=== PATIENT | male | born 1955 | race Caucasian/White ===

== ENCOUNTER 2019-02-02 21:06 | Observation (INO) ==
[2019-02-02] MEDS ORDERED: PANTOPRAZOLE SODIUM 40 MG/100 ML PIGGYBACK IV ONE (22:00)
--- NOTE | 2019-02-02 22:00 | ERNOTE ---
Dizziness ER Record Date of Service: 02/02/19 Presenting Symptoms: weakness Time Seen by Provider: 02/02/19 21:42 Source: patient Immunizations: IMMUNIZATION HX Immunizations Up to Date Yes History of Influenza Vaccine Yes Hx Pneumococcal Vaccination Yes Allergies/Adverse Reactions: Allergies Allergy/AdvReac Type Severity Reaction Status Date / Time No Known Allergies Allergy Unverified 02/02/19 21:20 Home Medications: HOME MEDICATIONS Aspirin [Aspir-Low] 324 mg PO DAILY 02/02/19 [Last Taken Unknown] Atorvastatin Calcium 10 mg PO DAILY 02/02/19 [Last Taken Unknown] Benazepril HCl 10 mg PO 02/02/19 [Last Taken Unknown] Cholecalciferol (Vitamin D3) [Vitamin D3] 2,000 unit PO DAILY 02/02/19 [Last Taken Unknown] Cyanocobalamin (Vitamin B-12) [Vitamin B12] 5,000 mcg PO DAILY 02/02/19 [Last Taken Unknown] Glipizide 02/02/19 [Last Taken Unknown] Januvia 02/02/19 [Last Taken Unknown] Levothyroxine Sodium 02/02/19 [Last Taken Unknown] Metformin HCl 02/02/19 [Last Taken Unknown] - History of Present Illness Narrative: This is a 63-year-old gentleman who lives in [place]. 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 The patient had some blood tests done earlier today for vertigo type symptoms. He was called and told his hemoglobin was low. The patient has no history of taking blood thinners but he does take a baby aspirin each day. He says that over the course of the summer he just has not been feeling right. There are occasions where he gets chest tightness associated with palpitations and shortness of breath. He gets some tingling especially in the right hand. He does not have any vomiting but he does get nauseated and gets slightly diaphoretic. The symptoms will get better on their own within 15 to 30 minutes. The patient also had one episode earlier in the last month where he got dizzy with right-sided tingling to his face arm leg and torso. He also had difficulty speaking due to "the side of my face drawing up "he did not see anyone for evaluation of this. The physician who is associated with his [facility] ordered the labs today as routine screening to see what is been going on and he was found to have the symptoms so a call was made to the hospital and the physician requested a bunch of tests. At this time the patient does not have any symptoms with the exception of just having generalized malaise. He says over the last 4 days he has had dark stool. He gets some mild crampy lower abdominal pain about an hour after eating. He also says over the last month his hemorrhoids have been acting up and he gets a bowl full of maroon blood on occasion. He assumes that his hemorrhoids but is not sure. At present he denies any fever, abdominal pain, shortness of breath, sore throat, runny nose, blurred vision, or other symptoms. Review of Systems - Review of Systems Constitutional: Present: malaise EYE: Present: no symptoms reported ENT: Present: no symptoms reported Respiratory: Present: shortness of breath Cardiology: Present: chest pain, palpitations Gastrointestinal/Abdominal: Present: nausea, abdominal pain, other - Dark stool. Absent: vomiting, diarrhea Genitourinary: Present: no symptoms reported Musculoskeletal: Present: no symptoms reported Skin: Present: no symptoms reported Neurological: Present: See HPI, dizziness/light-headedness, tingling Endocrine: Present: no symptoms reported Hematologic/Lymphatic: Present: See HPI Psych: Present: no symptoms reported All Other Systems: All systems neg except as marked Medical History (Last Updated 02/02/19 @ 21:17 by Valerie Pendleton RN) Hyperlipemia Hypertension Hypothyroid Non-insulin dependent type 2 diabetes mellitus Surgical History: Surgical History (Last Updated 02/02/19 @ 21:18 by Valerie Pendleton RN) Hx of cholecystectomy Previous back surgery Family History: Family History (Last Updated 02/02/19 @ 21:19 by Valerie Pendleton RN) Mother Diabetes type 2, uncontrolled Father History of TIA (transient ischemic attack) and stroke Grandfather History of TIA (transient ischemic attack) and stroke Myocardial infarction Lung cancer Social History: (Last Updated 02/02/19 @ 21:20 by Valerie Pendleton RN) Tobacco: Smoking Status: Never smoker Alcohol: alcohol intake: never Substance Use: substance use type: does not use Physical Exam - Physical Exam General Appearance: Present: wd/wn, alert, no apparent distress, other - Patient does appear pale Head Exam: Present: normal inspection, no evidence of injury Eye Exam: Normal inspection: bilateral, PERRL: bilateral, EOMI: bilateral Ears, Nose, Throat: Present: normal ENT inspection, normal pharynx Neck: Present: normal inspection, nontender Respiratory: Present: no respiratory distress, normal breath sounds, chest nontender, lungs clear Cardiovascular/Chest: Present: regular rate, rhythm, no murmur Gastrointestinal/Abdominal: Present: nontender, nondistended, soft Back Exam: Present: normal inspection, normal range of motion, no CVA tenderness, no vertebral tenderness Extremity Exam: Present: normal inspection, non-tender, normal range of motion, no edema Neurological Exam: Present: alert, oriented, normal mood/affect, no motor /sensory deficits Skin Exam: Present: other - Does seem pale Lymphatic Exam: Present: no adenopathy Progress - Results and Orders Patient's Lab Results:: I have reviewed the patient's lab results. - Vital Signs Patient's Vital Signs:: I have reviewed the patient's vital signs. Vital Signs: Vital Signs 02/02/19 21:12 Temperature 36.3 C Pulse Rate 74 Respiratory Rate 16 Blood Pressure 129/67 O2 Sat by Pulse Oximetry 98 - EKG EKG #1 EKG read: Interp. by me EKG Comments: Sinus rhythm with a ventricular rate of 77, normal axis, normal intervals, no ST elevation, no abnormal T waves. - X-Ray X-Ray #1 X-Ray: chest Interpretation: Interp. by me X-ray Comments: No acute cardiopulmonary abnormalities are identified - CT/Ultrasound CT/Ultrasound Narrative: CT of the head failed to demonstrate any acute intracranial abnormality - Progress/Reassessment Chief Complaint: Dizziness Plan - Plan Plan: Patient is symptomatic with anemia. GI bleed is certain. I have spoke with Dr. Alcazar who is graciously agreed to admit the patient. Is gotten Protonix IV instead a liter of saline and a packed unit of cells going in now. We will place on telemetry on the floor. He was orthostatic with his heart rate going up 30 points. I do not believe CAT scan is warranted at this time as he has no pain and no leukocytosis or fever. It is unlikely that a CT scan of the abdomen is can show a source of bleeding Departure Clinical Impression: Anemia Qualifiers: Anemia type: other cause Other causes of anemia: other cause, not classified Q ualified Code(s): D64.89 - Other specified anemias GI bleed Qualifiers: GI bleed type/associated pathology: unspecified gastrointestinal hemorrhage type Qualified Code(s): K92.2 - Gastrointestinal hemorrhage, unspecified - Departure Disposition: Still a patient Condition: Stable
[2019-02-02 22:19] LABS: Mean Cell Volume 65.4 fl (78-100); Mean Corpuscular Hemoglobin 18.4 pg (27-31); Mean Corpuscular Hgb Conc 28.1 g/dl (32-36); Mean Platelet Volume 9.2 fl (8-11.3); Neutrophil # 3.9 K/mm3 (1.3-6.0); Neutrophil % 49.5 % (42-75.0); Platelet Count 387 K/mm3 (150-450); Red Blood Count 4.13 M/mm3 (4.7-6.0); Red Cell Distribution Width 16.6 % (11.5-14.0); White Blood Count 7.8 K/mm3 (4.0-10.5)
[2019-02-02 22:24] LABS: Prothrombin Time (Patient) 11.2 Seconds (9.1-10.7)
[2019-02-02 22:32] LABS: Hemoglobin 7.6 gm/dL (13.5-18.0)
[2019-02-02 22:37] LABS: BUN/Creatinine Ratio 19.5 (9.0-21.6); Blood Urea Nitrogen 29 mg/dL (6-23); Glucose * 115 mg/dL (70-110); INR 1.14 INR (0.92-1.08); Sodium 138 mmol/L (132-142); Troponin I Less than 0.017 ng/mL (0.00-0.10)
[2019-02-02 22:38] LABS: ALT 18 U/L (19-67); AST 26 U/L (0-48); Albumin * 3.8 gm/dl (3.4-5.0); Alkaline Phosphatase * 49 U/L (50-170); Anion Gap 15.6 mmol/L (6.8-13.8); BNP * 68 pg/mL (5-175); Bilirubin, Total 0.2 mg/dL (0.0-1.1); Ca. Corrected For Albumin 8.6 mg/dL (8.4-10.2); Calcium * 8.8 mg/dL (7.9-10.9); Carbon Dioxide 23.3 mmol/L (24-32.6); Chloride 104 mmol/L (97-106); Total Protein 7.5 gm/dL (6.2-8.2)
[2019-02-02 22:50] LABS: Potassium 4.9 mmol/L (3.4-4.6)
[2019-02-03 07:40] LABS: Hematocrit 27.8 % (42.0-52.0); Hemoglobin 8.1 gm/dL (13.5-18.0)
[2019-02-03] MEDS ORDERED: NORMAL SALINE 1,000 ML IV ONE (10:45)
--- NOTE | 2019-02-03 12:21 | HPDIS ---
Chief Complaint - Chief Complaint Date of Service: 02/03/19 Time of Service: 12:21 Chief Complaint: GI bleed, dizziness History of Present Illness: 63-year-old male with history of hypertension, hyperlipidemia, hypothyroidism, and [id number] type 2 diabetes presented to the ER with bloody bowel movements and dizziness. Patient had been seen previously by another physician in outpatient setting for this issue where he had a hemoglobin drawn which he was told came back at 7.1. He was advised to come to our hospital at that time. Here his initial hemoglobin was 7.6 and he was transfused 1 unit of packed red blood cells by Dr. Escalante. He denies abdominal pain, diarrhea, nausea or vomiting. He denies fevers or chills. He is unsure as to how long this is been going on but he can recall a few bloody bowel movements during the last couple weeks which she had initially attributed to internal hemorrhoids which he has a diagnosis of. Of note patient also endorses some right side sensory changes in his face, arm, leg. CT scan of the head was negative for any acute pathology. This is been going on for greater than a month, patient has a scheduled MRI of the brain with and without contrast to be done in the next few days in the outpatient setting. His symptoms have not changed with this visit. While here his vital signs been stable and he is been afebrile. Patient was admitted to the floor under observation to determine whether or not he needed inpatient work-up for this GI bleed or if he can be discharged home after receiving a unit and have this work-up performed in the outpatient setting. Medical History (Last Updated 02/03/19 @ 00:28 by Carol Nielson RN) Sleep apnea Hyperlipemia Hypertension Hypothyroid Non-insulin dependent type 2 diabetes mellitus Surgical History: Surgical History (Last Reviewed 02/03/19 @ 00:28 by Carol Nielson RN) Hx of cholecystectomy Previous back surgery Family History: Family History (Last Reviewed 02/03/19 @ 00:28 by Carol Nielson RN) Mother Diabetes type 2, uncontrolled Father History of TIA (transient ischemic attack) and stroke Grandfather History of TIA (transient ischemic attack) and stroke Myocardial infarction Lung cancer Social History: (Last Reviewed 02/03/19 @ 00:28 by Carol Nielson RN) Tobacco: Smoking Status: Never smoker Alcohol: alcohol intake: never Substance Use: substance use type: does not use Review Of Systems (GEN) - Review of Systems Generalized/Overall Review: Absent: Weakness, Chills, Fever EENTM: Absent: Blurred Vision, Double Vision, Ear Pain Respiratory: Absent: Cough, Shortness of Breath Cardiac: Absent: Chest Pain, Edema, Palpitations Abdominal: Present: Melena. Absent: Nausea, Vomiting, Abdominal Pain Genitourinary: Present: No Symptoms Reported Musculoskeletal: Present: No Symptoms Reported Neurological: Present: Numbness, Weakness Skin: Present: No Symptoms Reported Endocrine: Present: No Symptoms Reported Immunizations: IMMUNIZATION HX Immunizations Up to Date Yes History of Influenza Vaccine Yes Hx Pneumococcal Vaccination Yes Allergies/Adverse Reactions: Allergies Allergy/AdvReac Type Severity Reaction Status Date / Time No Known Allergies Allergy Verified 02/03/19 09:07 Home Medications: HOME MEDICATIONS Aspirin [Aspir-Low] 324 mg PO DAILY 02/02/19 [Last Taken 02/02/19] Atorvastatin Calcium 10 mg PO DAILY 02/02/19 [Last Taken 02/02/19] Benazepril HCl 20 mg PO DAILY 02/02/19 [Last Taken 02/02/19] Cholecalciferol (Vitamin D3) [Vitamin D3] 2,000 unit PO DAILY 02/02/19 [Last Taken 02/02/19] Cyanocobalamin (Vitamin B-12) [Vitamin B12] 5,000 mcg PO DAILY 02/02/19 [Last Taken 02/02/19] Fenofibrate 160 mg PO DAILY 02/03/19 [Last Taken 02/02/19] Levothyroxine Sodium [Synthroid] 112 mcg PO DAILY 02/03/19 [Last Taken 02/02/19] Pioglitazone HCl [Actos] 30 mg PO DAILY 02/03/19 [Last Taken 02/02/19] metFORMIN HCL [Metformin HCl] 1,000 mg PO BID 02/03/19 [Last Taken 02/02/19] sitaGLIPtin PHOSPHATE [Januvia] 100 mg PO DAILY 02/03/19 [Last Taken 02/02/19] Exam - Exam Vital Signs: Vital Signs - Last Taken Temp 36.5 C 02/03/19 10:51 Pulse 66 02/03/19 10:51 Resp 12 02/03/19 10:51 BP 107/63 02/03/19 10:51 Pulse Ox 95 02/03/19 10:51 Constitutional: Present: Alert, Oriented x3, Cooperative, Obese ENT Exam: Present: hearing grossly normal, pharynx normal. Absent: nasal congestion, nasal drainage Eye Exam: bilateral eye: normal inspection, PERRL, EOMI Neck: Present: non-tender, supple Back Exam: Present: normal inspection, no CVA tenderness Respiratory: Present: lungs clear, normal breath sounds Cardiovascular/Chest: Present: regular rate, rhythm, no murmur Abdomen: Present: Normal bowel sounds, soft, nontender /Rectal: Present: Exam deferred Skin Exam: Present: normal color, warm/dry Neurologic: Present: alert, oriented x 3, sensory deficit - Minimal decrease in sensory of right lower and upper extremity compared to left lower and upper extremity. Absent: aphasia, facial droop, motor weakness Appearance: Present: appropriate appearance, appropriate insight Eye contact: Present: cooperative, good eye contact Thoughts: Present: normal thought pattern, normal mood /affect Diagnostic Studies: Abnormal Lab Results 02/02/19 02/02/19 02/02/19 Range/Units 22:05 22:05 22:05 RBC 4.13 L (4.7-6.0) M/mm3 Hgb 7.6 L* (13.5-18.0) gm/dL Hct 27.0 L (42.0-52.0) % MCV 65.4 L (78-100) fl MCH 18.4 L (27-31) pg MCHC 28.1 L (32-36) g/dl RDW 16.6 H (11.5-14.0) % Immature Gran % (Auto) 0.80 H (0.001-0.429) % Immature Gran # (Auto) 0.06 H (0.000-0.0310) K/mm3 Monocytes % 9.8 H (0.0-9) % Eosinophils % 4.4 H (0.0-3.0) % Immature Retic Fraction 38.9 H (2.3-13.4) % Retic Hgb Content 17.7 L (29-35) pg PT 11.2 H (9.1-10.7) Seconds INR (Anticoag Therapy) 1.14 H (0.92-1.08) INR Potassium 4.9 H (3.4-4.6) mmol/L Carbon Dioxide 23.3 L (24-32.6) mmol/L Anion Gap 15.6 H (6.8-13.8) mmol/L BUN 29 H (6-23) mg/dL Creatinine 1.49 H (0.4-1.4) mg/dL Est GFR (Non-Af Amer) 50 L (60-130) mL/min Random Glucose 115 H (70-110) mg/dL ALT 18 L (19-67) U/L Alkaline Phosphatase 49 L (50-170) U/L Crossmatch 02/02/19 02/03/19 Range/Units 22:05 07:34 RBC (4.7-6.0) M/mm3 Hgb 8.1 L (13.5-18.0) gm/dL Hct 27.8 L (42.0-52.0) % MCV (78-100) fl MCH (27-31) pg MCHC (32-36) g/dl RDW (11.5-14.0) % Immature Gran % (Auto) (0.001-0.429) % Immature Gran # (Auto) (0.000-0.0310) K/mm3 Monocytes % (0.0-9) % Eosinophils % (0.0-3.0) % Immature Retic Fraction (2.3-13.4) % Retic Hgb Content (29-35) pg PT (9.1-10.7) Seconds INR (Anticoag Therapy) (0.92-1.08) INR Potassium (3.4-4.6) mmol/L Carbon Dioxide (24-32.6) mmol/L Anion Gap (6.8-13.8) mmol/L BUN (6-23) mg/dL Creatinine (0.4-1.4) mg/dL Est GFR (Non-Af Amer) (60-130) mL/min Random Glucose (70-110) mg/dL ALT (19-67) U/L Alkaline Phosphatase (50-170) U/L Crossmatch See Detail Laboratory Results WBC 7.8 K/mm3 (4.0-10.5) 02/02/19 22:05 RBC 4.13 M/mm3 (4.7-6.0) L 02/02/19 22:05 Hgb 8.1 gm/dL (13.5-18.0) L 02/03/19 07:34 Hct 27.8 % (42.0-52.0) L 02/03/19 07:34 MCV 65.4 fl (78-100) L 02/02/19 22:05 MCH 18.4 pg (27-31) L 02/02/19 22:05 MCHC 28.1 g/dl (32-36) L 02/02/19 22:05 RDW 16.6 % (11.5-14.0) H 02/02/19 22:05 Plt Count 387 K/mm3 (150-450) 02/02/19 22:05 MPV 9.2 fl (8-11.3) 02/02/19 22:05 Immature Gran % (Auto) 0.80 % (0.001-0.429) H 02/02/19 22:05 Immature Gran # (Auto) 0.06 K/mm3 (0.000-0.0310) H 02/02/19 22:05 Neutrophils % 49.5 % (42-75.0) 02/02/19 22:05 Lymphocytes % 34.5 % (20-51) 02/02/19 22:05 Monocytes % 9.8 % (0.0-9) H 02/02/19 22:05 Eosinophils % 4.4 % (0.0-3.0) H 02/02/19 22:05 Basophils % 1.0 % (0.0-1.0) 02/02/19 22:05 Nucleated RBC % 0.0 k/mm3 (0-1) 02/02/19 22:05 Neutrophils # 3.9 K/mm3 (1.3-6.0) 02/02/19 22:05 Lymphocytes # 2.68 k/mm3 (1.5-3.5) 02/02/19 22:05 Monocytes # 0.8 k/mm3 (0.0-1.0) 02/02/19 22:05 Eosinophils # 0.3 k/mm3 (0.0-0.7) 02/02/19 22:05 Absolute Basophils 0.1 k/mm3 (0.0-0.1) 02/02/19 22:05 Absolute Retic 0.0702 02/02/19 22:05 Percent Retic 1.7 % (0.4-1.8) 02/02/19 22:05 Immature Retic Fraction 38.9 % (2.3-13.4) H 02/02/19 22:05 Retic Hgb Content 17.7 pg (29-35) L 02/02/19 22:05 PT 11.2 Seconds (9.1-10.7) H 02/02/19 22:05 INR (Anticoag Therapy) 1.14 INR (0.92-1.08) H 02/02/19 22:05 Sodium 138 mmol/L (132-142) 02/02/19 22:05 Plasma Sodium 138 mmol/L (130-142) 02/02/19 22:05 Potassium 4.9 mmol/L (3.4-4.6) H 02/02/19 22:05 Chloride 104 mmol/L (97-106) 02/02/19 22:05 Carbon Dioxide 23.3 mmol/L (24-32.6) L 02/02/19 22:05 Anion Gap 15.6 mmol/L (6.8-13.8) H 02/02/19 22:05 BUN 29 mg/dL (6-23) H 02/02/19 22:05 Creatinine 1.49 mg/dL (0.4-1.4) H 02/02/19 22:05 Est GFR (Non-Af Amer) 50 mL/min (60-130) L 02/02/19 22:05 BUN/Creatinine Ratio 19.5 (9.0-21.6) 02/02/19 22:05 Random Glucose 115 mg/dL (70-110) H 02/02/19 22:05 Calcium 8.8 mg/dL (7.9-10.9) 02/02/19 22:05 Calcium Adj for Albumin 8.6 mg/dL (8.4-10.2) 02/02/19 22:05 Total Bilirubin 0.2 mg/dL (0.0-1.1) 02/02/19 22:05 AST 26 U/L (0-48) 02/02/19 22:05 ALT 18 U/L (19-67) L 02/02/19 22:05 Alkaline Phosphatase 49 U/L (50-170) L 02/02/19 22:05 Troponin I Less than 0.017 ng/mL (0.00-0.10) 02/02/19 22:05 B-Natriuretic Peptide 68 pg/mL (5-175) 02/02/19 22:05 Total Protein 7.5 gm/dL (6.2-8.2) 02/02/19 22:05 Albumin 3.8 gm/dl (3.4-5.0) 02/02/19 22:05 Blood Type O Positive 02/02/19 22:05 Antibody Screen Negative 02/02/19 22:05 Crossmatch See Detail 02/02/19 22:05 Assessment/Plan - Narrative Narrative: Patient is here for observation due to symptomatic anemia with dizziness from GI bleed. Case was discussed with Dr. Russ who thinks that this can be worked up in outpatient setting. Patient has not had any further bloody bowel movements since being admitted. Patient currently feeling well and his vital signs are stable. Repeat hemoglobin was 8.1. Plan is for likely upper and lower scoping in the near future to determine source of bleed and for treatment plan. As far as patient's right-sided abnormalities, advised patient continue with scheduled MRI of brain early next week as planned. Patient had an acute kidney injury with a slightly elevated creatinine and lower GFR. He was given a liter of normal saline and repeat creatinine and GFR returned back to within normal range. Should be safe for him to have brain MRI with contrast in the next couple days. Hypertensionblood pressure well controlled while here. Other vital signs stable. Recommend he continue consistent carb diet. No changes to his chronic medications as he is already on a full-strength aspirin and high-dose statin. - Assessment/Plan (1) GI bleed Problem: Acute Qualifiers: GI bleed type/associated pathology: unspecified gastrointestinal hemorrhage type Qualified Code(s): K92.2 - Gastrointestinal hemorrhage, unspecified (2) Anemia Problem: Acute Qualifiers: Anemia type: other cause Other causes of anemia: other cause, not classified Qualified Code(s): D64.89 - Other specified anemias (3) Weakness of right side of body Problem: Acute (4) Hypertension Problem: Acute (5) Hyperlipidemia Problem: Acute (6) Hypothyroidism Problem: Acute (1) GI bleed Problem: Chronic Qualifiers: GI bleed type/associated pathology: unspecified gastrointestinal hemorrhage type Qualified Code(s): K92.2 - Gastrointestinal hemorrhage, unspecified (2) Anemia Problem: Chronic Qualifiers: Anemia type: other cause Other causes of anemia: other cause, not classified Qualified Code(s): D64.89 - Other specified anemias (3) Weakness of right side of body Problem: Acute (4) Hypertension Problem: Chronic (5) Hyperlipidemia Problem: Chronic (6) Hypothyroidism Problem: Chronic Date of Discharge:: 02/03/19 Description of Stay: 63-year-old male with history of hypertension, hyperlipidemia, hypothyroidism, and qzn-mhobwzz-[id number] type 2 diabetes presented to the ER with bloody bowel movements and dizziness. Patient had been seen previously by another physician in outpatient setting for this issue where he had a hemoglobin drawn which he was told came back at 7.1. He was advised to come to our hospital at that time. Here his initial hemoglobin was 7.6 and he was transfused 1 unit of packed red blood cells by Dr. Escalante. He denies abdominal pain, diarrhea, nausea or vomiting. He denies fevers or chills. He is unsure as to how long this is been going on but he can recall a few bloody bowel movements during the last couple weeks which she had initially attributed to internal hemorrhoids which he has a diagnosis of. Of note patient also endorses some right side sensory changes in his face, arm, leg. CT scan of the head was negative for any acute pathology. This is been going on for greater than a month, patient has a scheduled MRI of the brain with and without contrast to be done in the next few days in the outpatient setting. His symptoms have not changed with this visit. While here his vital signs been stable and he is been afebrile. Patient was admitted to the floor under observation to determine whether or not he needed inpatient work-up for this GI bleed or if he can be discharged home after receiving a unit and have this work-up performed in the outpatient setting. Patient was here for observation due to symptomatic anemia with dizziness from GI bleed. Case was discussed with Dr. Russ who thinks that this can be worked up in outpatient setting. Patient has not had any further bloody bowel movements since being admitted. Patient currently feeling well and his vital signs are stable. Repeat hemoglobin was 8.1. Plan is for likely upper and lower scoping in the near future to determine source of bleed and for treatment plan. Patient is to call Dr. Burnett's office on Tuesday to set up appointment, phone number given to patient. As far as patient's right-sided abnormalities, advised patient continue with scheduled MRI of brain early next week as planned. Patient had an acute kidney injury with a slightly elevated creatinine and lower GFR. He was given a liter of normal saline and repeat creatinine and GFR returned back to within normal range. Should be safe for him to have brain MRI with contrast in the next couple days. Hypertensionblood pressure well controlled while here. Other vital signs stable. Recommend he continue consistent carb diet. No changes to his chronic medications as he is already on a full-strength aspirin and high-dose statin. Continue consistent carb diet. Patient can follow-up with me in 1 to 2 weeks unless he chooses to go back to see [facility] which is also appropriate. Procedures Performed: none Results and Findings: Lab Pending Results 02/02/19 22:05: WBC 7.8, RBC 4.13 L, Hgb 7.6 L*, Hct 27.0 L, MCV 65.4 L, MCH 18.4 L, MCHC 28.1 L, RDW 16.6 H, Plt Count 387, MPV 9.2, Immature Gran % (Auto) 0.80 H, Immature Gran # (Auto) 0.06 H, Neutrophils % 49.5, Lymphocytes % 34.5, Monocytes % 9.8 H, Eosinophils % 4.4 H, Basophils % 1.0, Nucleated RBC % 0.0, Neutrophils # 3.9, Lymphocytes # 2.68, Monocytes # 0.8, Eosinophils # 0.3, Absolute Basophils 0.1, Absolute Retic 0.0702, Percent Retic 1.7, Immature Retic Fraction 38.9 H, Retic Hgb Content 17.7 L 02/02/19 22:05: PT 11.2 H, INR (Anticoag Therapy) 1.14 H 02/02/19 22:05: Sodium 138, Plasma Sodium 138, Potassium 4.9 H, Chloride 104, Carbon Dioxide 23.3 L, Anion Gap 15.6 H, BUN 29 H, Creatinine 1.49 H, Est GFR (N on-Af Amer) 50 L, BUN/Creatinine Ratio 19.5, Random Glucose 115 H, Calcium 8.8, Calcium Adj for Albumin 8.6, Total Bilirubin 0.2, AST 26, ALT 18 L, Alkaline Phosphatase 49 L, Troponin I Less than 0.017, B-Natriuretic Peptide 68, Total Protein 7.5, Albumin 3.8 02/02/19 22:05: Blood Type O Positive, Antibody Screen Negative, Crossmatch See Detail 02/03/19 07:34: Hgb 8.1 L, Hct 27.8 L Discharge Location: Home Disposition: Home self-care Condition: Stable Discharge Activity: Activity as tolerated Discharge Diet: Consistent carbs Referrals: Dariel Jackson DO [Staff Physician] - Two Weeks Additional Patient Instructions (free text): Please call Dr. Russ's office on Tuesday to schedule a follow up appointment for next week. [phone] Complete Home Medications List: Complete Home Medication List: Aspirin [Aspir-Low] 324 mg PO DAILY 02/02/19 Atorvastatin Calcium 10 mg PO DAILY 02/02/19 Benazepril HCl 20 mg PO DAILY 02/02/19 Cholecalciferol (Vitamin D3) [Vitamin D3] 2,000 unit PO DAILY 02/02/19 Cyanocobalamin (Vitamin B-12) [Vitamin B12] 5,000 mcg PO DAILY 02/02/19 Fenofibrate 160 mg PO DAILY 02/03/19 Levothyroxine Sodium [Synthroid] 112 mcg PO DAILY 02/03/19 Pioglitazone HCl [Actos] 30 mg PO DAILY 02/03/19 metFORMIN HCL [Metformin HCl] 1,000 mg PO BID 02/03/19 sitaGLIPtin PHOSPHATE [Januvia] 100 mg PO DAILY 02/03/19
[2019-02-03 15:43] LABS: Anion Gap 14.4 mmol/L (6.8-13.8); BUN/Creatinine Ratio 20.1 (9.0-21.6); Calcium * 8.4 mg/dL (7.9-10.9); Carbon Dioxide 22.3 mmol/L (24-32.6); Estimated Creat Clear 53.9; Potassium 4.7 mmol/L (3.4-4.6)
[2019-02-03 17:23] VITALS: BP 129/67
== END 2019-02-03 17:30 | disposition home or self-care (01) ==
LOC: ER 21:06 → INTOOBSV 23:19 → MS 23:19
PROVIDERS: ADMIT Family Medicine; ATTEND Family Medicine
CPT/HCPCS: 36415; 36430; 70450; 71020; 71046; 80048; 80053; 83519; 83880; 84484; 85014; 85018; 85025; 85045; 85610; 86850; 93005; 94660; 96365; 99285; G0378; P9016